=== PATIENT | female | born 1975 | race Caucasian/White ===

== ENCOUNTER 2018-03-08 19:29 | Emergency (ER) | payer SELFPAY ==
[~2018-03-08] VITALS: Ht 175.3 cm; Wt 80.7 kg
[2018-03-08 19:32] VITALS: Ht 175.3 cm; Wt 80.7 kg
[2018-03-08 20:20] LABS: BASOPHIL % 0.3 % (0-2); PLATELET COUNT 206 x10^3mcL (130-400)
[2018-03-08 20:24] LABS: RED CELL DISTRIBUTION WIDTH 16.9 % (11.5-14.5)
[2018-03-08 20:27] LABS: CALCIUM 9.1 mg/dL (8.5-10.1); CARBON DIOXIDE 25.8 mmol/L (21-32); CHLORIDE SERUM 102 mmol/L (98-107); CREATININE SERUM 0.9 mg/dL (0.6-1.0); GFR1 > 60 mL/min; GLUCOSE SERUM 95 mg/dL (74-106); POTASSIUM SERUM 3.3 mmol/L (3.5-5.1); SODIUM SERUM 136 mmol/L (136-145)
[2018-03-08 20:42] LABS: FREE T4 1.13 ng/dL (0.76-1.46)
[2018-03-08 21:08] LABS: microscopic required? NO
[2018-03-08 21:22] LABS: UA SPECIFIC GRAVITY <=1.005 (1.005-1.035); urine erythrocyte NEGATIVE (NEGATIVE)
[2018-03-08 21:48] VITALS: BP 129/88
== END 2018-03-08 21:48 | disposition home or self-care (01) ==
LOC: ED 19:29
PROVIDERS: Emergency Medicine
DX: I10 Essential (primary) hypertension (principal); R51 Headache; F41.9 Anxiety disorder, unspecified
CPT/HCPCS: 36415; 84439; Q0092